=== PATIENT | female | born 1995 | race Hispanic/Latino ===

== ENCOUNTER 2020-08-29 16:20 | Outpatient (CLI) | payer MEDICAID, OTHER ==
--- NOTE | 2020-08-29 18:37 | Ultrasound Report ---
ULTRASOUND OBSTETRIC LIMITED INDICATION / CLINICAL INFORMATION: r/o placental abruption.. Clinical Gestational Age (GA): 23.6 weeks.days COMPARISON: None available. FINDINGS: HEART RATE (beats per minute): 167 AMNIOTIC FLUID INDEX (cm) = within normal limits PRESENTATION: Cephalic. ADDITIONAL FINDINGS: The placenta is grade 0 posterior and fundal free of the os. No evidence of lift ing or separation of the placenta seen. No placental or subchorionic hemorrhage. IMPRESSION: 1. No significant abnormality. Specifically, no evidence of placental abruption. Signer Name: Mayur Watson MD Signed: 08/29/2020 6:33 PM Workstation Name: [id number]
[2020-11-01 15:08] VITALS: BP 109/62
== END 2020-08-29 22:15 | disposition home or self-care (01) ==
LOC: TRG 16:20 → APU 16:20 → TRG 22:15
PROVIDERS: ATTEND Obstetrics & Gynecology
DX: Z34.82 Encounter for supervision of other normal pregnancy, second trimester (principal); Z3A.23 23 weeks gestation of pregnancy
CPT/HCPCS: 59025; 76815; 85460; 86850; 86900; 86901